=== PATIENT | male | born 2000 | race Caucasian/White ===

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

== ENCOUNTER → 2021-05-31 | Outpatient (CLI) | payer BC, OTHER ==
[2021-05-31 23:20] LABS: Basophils # (A) 0.03 X 10*3/uL (0.00-0.10); Basophils % (A) 0.4 %; Eosinophils # (A) 0.06 X 10*3/uL (0.04-0.35); Eosinophils % (A) 0.8 %; HCT 42.5 % (39.6-50.0); HGB 13.8 g/dL (13.0-17.0); Lymphocytes # (A) 2.96 X 10*3/uL (0.90-5.00); MCH 28.9 pg (27.0-32.0); MCHC 32.5 g/dL (32.0-37.0); MCV 89.1 fL (80.0-97.0); Mean Platelet Volume 9.9 fL (9.5-12.2); Monocytes # (A) 0.46 X 10*3/uL (0.20-1.00); Monocytes % (A) 5.9 %; Neutrophils # (A) 4.26 X 10*3/uL (1.80-7.70); Neutrophils % (A) 54.6 %; Platelet Count 275 X 10*3/uL (140-440); RBC 4.77 X 10*6/uL (4.40-5.60); WBC 7.79 X 10*3/uL (4.50-10.00)
== END | disposition home or self-care (01) ==
LOC: LABWHC1 15:47
PROVIDERS: ATTEND Ophthalmology
DX: H11.31 Conjunctival hemorrhage, right eye (principal)
CPT/HCPCS: 36415; 85025

== ENCOUNTER → 2022-11-13 | Outpatient (CLI) | payer BC, OTHER ==
[2022-11-14 01:17] LABS: Basophils # (A) 0.02 X 10*3/uL (0.00-0.10); Basophils % (A) 0.4 %; Eosinophils # (A) 0.14 X 10*3/uL (0.04-0.35); Eosinophils % (A) 2.6 %; HCT 43.4 % (39.6-50.0); HGB 14.5 g/dL (13.0-17.0); Immature Grans, Automated 0.2 %; Lymphocytes # (A) 2.74 X 10*3/uL (0.90-5.00); Lymphocytes % (A) 50.1 %; MCH 29.5 pg (27.0-32.0); MCHC 33.4 g/dL (32.0-37.0); MCV 88.4 fL (80.0-97.0); Mean Platelet Volume 10.1 fL (9.5-12.2); Monocytes % (A) 7.3 %; NRBC Per 100 WBC 0 /100 WBCS (0.0-0.0); Neutrophils # (A) 2.16 X 10*3/uL (1.80-7.70); Neutrophils % (A) 39.4 %; Platelet Count 277 X 10*3/uL (140-440); RBC 4.91 X 10*6/uL (4.40-5.60); RDW 12.1 % (11.5-14.5); WBC 5.47 X 10*3/uL (4.50-10.00)
[2022-11-14 03:20] LABS: Triglycerides 84.9 mg/dL (0.00-149.00)
== END | disposition home or self-care (01) ==
LOC: LABWHC1 13:35
PROVIDERS: ATTEND Student in an Organized Health Care Education/Training Program
DX: L70.0 Acne vulgaris (principal)
CPT/HCPCS: 36415; 82465; 84450; 84460; 84478; 85025